=== PATIENT | female | born 1935 | race African-American/Black ===

== ENCOUNTER 2016-12-05 14:42 | Inpatient (IN) | payer OTHER ==
[~2016-12-05] VITALS: Ht 165.1 cm; Wt 75.7 kg
--- NOTE | 2016-12-05 07:30 | NUR ---
PT AWAKE AND ALERT, NO SIGNS OF ACUTE DISTRESS. BED IN LOW POSITION WITH CALL LIGHT WITHIN REACH. GAVE REPORT TO MONOTYPE KEYBOARD OPERATOR NURSE FOR CONTINUITY OF CARE. Addendum: 12/05/16 at 1940 by Jerilyn Kirkpatrick RN ENTERED TIME WRONG ON NOTE, MADE AT 1930. PT AWAKE AND ALERT, NO SIGNS OF ACUTE DISTRESS. BED IN LOW POSITION WITH CALL LIGHT WITHIN REACH. GAVE REPORT TO MONOTYPE KEYBOARD OPERATOR NURSE FOR CONTINUITY OF CARE.
[~2016-12-05 14:42] MED LIST: OMEG1SGL6 PO; [UNRECOGNIZED DRUG - CODE] PO
--- NOTE | 2016-12-05 14:45 | NUR ---
PATIENT AMBULATED WITH ASSISTANCE TO BED 3.
[2016-12-05 14:46] VITALS: BP 232/106
[2016-12-05] MEDS ORDERED: NACL 0.9% 1,000 ML IV SCH (14:52)
[2016-12-05] MEDS ORDERED: ASPIRIN 325 MG TAB PO ONE (14:55)
[2016-12-05] MEDS ORDERED: ONDANSETRON 4 MG/2 ML VIAL IVP ONE (14:55)
[2016-12-05] MEDS ORDERED: NITROGLYCERIN 0.4 MG TAB SL ONE (14:55)
[2016-12-05] MEDS ORDERED: FAMOTIDINE 20 MG/2 ML VIAL IVP ONE (14:55)
[2016-12-05] MEDS ORDERED: ORE25 PO (14:58)
--- NOTE | 2016-12-05 15:00 | NUR ---
81 yo female bib self for chest pain and headache, hx of htn. awake and alert on arrival, very unsteady gait. pain 6/10 pressure non-radiating. patient states pain started around 1030 this morning at rest. ERMD notified of patient status.
--- NOTE | 2016-12-05 15:01 | NUR ---
Patient being evaluated by physician at bedside.
--- NOTE | 2016-12-05 15:08 | NUR ---
ALEXSANDER NOTIFIED OF PATIENT'S HBP.
[2016-12-05 15:10] LABS: BASOPHILS # (AUTO) 0.1 K/uL (0.00-0.22); EOSINOPHILS # (AUTO) 0.1 K/uL (0-0.4); EOSINOPHILS % (AUTO) 2.2 % (0.0-4.0); HEMATOCRIT 37.8 % (36-48); HEMOGLOBIN 11.9 g/dL (12.0-16.0); LYMPHOCYTES # (AUTO) 2.8 K/uL (2.5-16.5); LYMPHOCYTES % (AUTO) 46.9 % (20.5-51.1); MEAN CORPUSCULAR HEMOGLOBIN 26 pg (27-31); MEAN CORPUSCULAR HGB CONC 32 g/dL (33-37); MEAN CORPUSCULAR VOLUME 83 fL (80-94); MONOCYTES # (AUTO) 0.4 K/uL (0.8-1.0); MONOCYTES % (AUTO) 6.2 % (1.7-9.3); NEUTROPHILS # (AUTO) 2.6 K/uL (1.8-7.7); PLATELET COUNT (AUTO) 360 K/uL (140-450); RED BLOOD CELL COUNT(AUTO) 4.53 MIL/uL (4.20-5.40); RED CELL DISTRIBUTION WIDTH 14.4 % (11.6-13.7)
[2016-12-05 15:27] LABS: ANION GAP 13.2 (8-16); CALCIUM 9.2 mg/dL (8.5-10.1); CARBON DIOXIDE 27.8 mmol/L (21-32); CHLORIDE 106 mmol/L (98-107); GLUCOSE 92 mg/dL (74-106); SODIUM SERUM 143 mmol/L (136-145); UREA NITROGEN, BLOOD 20 mg/dL (7-18)
[2016-12-05 15:32] LABS: PARTIAL THROMBOPLASTIN TIME 26.1 secs (22-35.6); PROTHROMBIN TIME 9.7 secs (10.8-13.4)
[2016-12-05 15:33] LABS: ALANINE AMINOTRANSFERASE 23 U/L (12-78); ALBUMIN 3.7 g/dL (3.4-5.0); ALKALINE PHOSPHATASE 76 U/L (46-116); ASPARTATE AMINOTRANSFERASE 18 U/L (15-37); TOTAL BILIRUBIN 0.5 mg/dL (0.0-1.0); TOTAL PROTEIN, SERUM 7.7 g/dL (6.4-8.2)
[2016-12-05] MEDS ORDERED: cloNIDine 0.1 MG TAB PO ONE (15:45)
[2016-12-05 15:53] LABS: AMYLASE 63 U/L (25-115); LIPASE 131 U/L (73-393)
[2016-12-05 16:24] LABS: BILIRUBIN,URINE NEGATIVE (NEGATIVE); BLOOD, URINE TRACE-I (NEGATIVE); LEUKOCYTE ESTERASE ,URINE NEGATIVE (NEGATIVE); NITRITE, URINE NEGATIVE (NEGATIVE); PH,URINE 5.5 (5.0-9.0); PROTEIN,URINE NEGATIVE (NEGATIVE); UGLUCOSE NEGATIVE (NEGATIVE); UROBILINOGEN,URINE 0.2 EU/dL (0.2 - 1)
[2016-12-05 16:27] LABS: APPEARANCE,URINE CLEAR (CLEAR); COLOR,URINE STRAW (YELLOW)
--- NOTE | 2016-12-05 16:34 | NUR ---
PT RESTING. FAMILY AT BEDSIDE. ERMD AWARE OF STATUS.
[2016-12-05 16:42] LABS: BACTERIA,URINE None Seen /HPF (None Seen); RBC,URINE 0-5 (RARE) /HPF (0-5); WBC,URINE NONE SEEN /HPF (0-5)
[2016-12-05 16:43] LABS: SQUAMOUS EPITHELIAL CELL,UR None Seen /LPF (0-3 (FEW))
[2016-12-05] MEDS ORDERED: ACETAMINOPHEN 325 MG TAB PO PRN (16:45)
[2016-12-05] MEDS ORDERED: HYDROcodone/APAP 7.5/325 MG 1 TAB PO PRN (16:45)
[2016-12-05] MEDS ORDERED: ONDANSETRON 4 MG/2 ML VIAL IVP PRN (16:45)
[2016-12-05 17:26] LABS: CHOL/HDL RATIO 4.3 (1-4.5); MAGNESIUM 2.2 mg/dL (1.8-2.4); PHOSPHORUS 3.7 mg/dL (2.5-4.9)
--- NOTE | 2016-12-05 17:30 | NUR ---
Patient will be admitted to care of DR. BELTRE. Admited to TELE. Will go to room 110B. Belongings list completed. Report to ANDI ANDRADE.
[2016-12-05 17:34] LABS: FREE T4 (FREE THYROXINE) 1.02 ng/dL (0.76-1.46); THYROID STIMULATING HORMONE 1.21 uIU/mL (0.34-3.76)
--- NOTE | 2016-12-05 17:45 | NUR ---
RECEIVED REPORT FROM FOOD SERVICE SALES REPRESENTATIVES, PT AWAKE AND ALERT, NO SIGNS OF ACUTE DISTRESS. BREATHING IS EVEN AND UNLABORED BILATERALLY, SKIN INTACT, BOWEL AND BLADDER CONTINENCE, AMBULATORY WITH ASSIST WITH MILD WEAKNESS, BOWEL SOUNDS ACTIVE IN ALL 4 QUADRANTS. IV PATENT AND ASYMPTOMATIC. BED IN LOW POSITION WITH BILATERAL HALF SIDE RAILS UP, CALL LIGHT WITHIN REACH. ORIENTED PATIENT TO UNIT AND HOSPITAL, PATIENT VERBALIZED UNDERSTANDING.
[2016-12-05] MEDS ORDERED: NITROGLYCERIN 0.4 MG TAB SL PRN (18:00)
[2016-12-05] MEDS ORDERED: MORPHINE SULFATE 2 MG/ML SYR IVP PRN (18:05)
[2016-12-05] MEDS: NACL 0.9% 1,000 ML IV SCH (19:27)
--- NOTE | 2016-12-05 19:40 | NUR ---
RECEIVED PT IN STABLE CONDITION FROM AM NURSE. AWAKE ,ALERT AND ORIENTED X4. ON TEL MONITOR . WITH NO C/O ANY PAIN NOR DISCOMFORT NOTED AT THIS TIME. IVF JUST STARTED BY AM NURSE ON THE RT AC#20 . CLEAR AND PATENT. PLAN OF CARE DISCUSSED AND VERBALIZED UNDERSTANDING. BED ON LOW POSITION. SIDE RAILS UP X2 AND CALL LIGHT PLACED WITHIN EASY REACH. FAMILY AT BEDSIDE. WILL CONTINUE TO MONITOR.
[2016-12-05 20:00] VITALS: BP_SYST 110; BP_SYST 153; BP_DIAS 53; BP_DIAS 94
[2016-12-05] MEDS: METOPROLOL 25 MG TAB PO SCH (21:00)
[2016-12-05] MEDS: ATORVASTATIN 20 MG TAB PO SCH (21:11)
[2016-12-05] MEDS: DOCUSATE SODIUM 100 MG GELCAP PO SCH (21:11)
--- NOTE | 2016-12-05 21:23 | NUR ---
LOPRESSOR NOT GIVEN FOR HR LOW . WILL CONTINUE TO MONITOR.
--- NOTE | 2016-12-05 22:50 | NUR ---
BLOOD WAS JUST DRAWN FOR TROPONIN. WILL FOLLOW UP RESULT.
[2016-12-05 23:30] VITALS: BP 136/77
--- NOTE | 2016-12-06 01:45 | NUR ---
2ND TROPONIN NEGATIVE RESULT.
--- NOTE | 2016-12-06 02:07 | NUR ---
TT HIS TIME. NO S/S OF ANY DISCOMFORT NOR PAIN NOTED. WILL CONTINUE TO MONITOR. Addendum: 12/06/16 at 0409 by Yanira Shearer RN SLEEPING AT THIS TIME.
[2016-12-06 04:00] VITALS: BP 133/54
--- NOTE | 2016-12-06 04:05 | NUR ---
SCD MACHINE APPLIED TO BLE . PT MADE AWARE OF THE BENEFITS OF THE MACHINE.
--- NOTE | 2016-12-06 05:30 | NUR ---
SLEEPING WELL AT THIS TIME. NO S/S OF ANY DISCOMFORT NOTED.
--- NOTE | 2016-12-06 07:08 | NUR ---
ENDORSED PT IN STABLE CONDITION TO AM NURSE.
--- NOTE | 2016-12-06 07:09 | NUR ---
PT AWAKE AND ALERT, NO SIGNS OF ACUTE DISTRESS. BREATHING EVEN AND UNLABORED BILATERALLY, PT ON ROOM AIR. BOWEL SOUNDS ACTIVE IN ALL 4 QUADRANTS, ABDOMEN SOFT AND NON-TENDER. SKIN INTACT. AMBULATORY WITH BRP. BOWEL AND BLADDER CONTINENT. PT DENIES PAIN AT THIS TIME. BED IN LOW POSITION WITH BILATERAL HALF SIDE RAILS UP, CALL LIGHT WITHIN REACH. REORIENTED TO UNIT AND HOSPITAL, PT VERBALIZED UNDERSTANDING.
[2016-12-06 07:13] LABS: BASOPHILS # (AUTO) 0.1 K/uL (0.00-0.22); BASOPHILS % (AUTO) 0.9 % (0.0-2.0); EOSINOPHILS # (AUTO) 0.1 K/uL (0-0.4); HEMATOCRIT 33.5 % (36-48); HEMOGLOBIN 10.4 g/dL (12.0-16.0); LYMPHOCYTES # (AUTO) 2.2 K/uL (2.5-16.5); LYMPHOCYTES % (AUTO) 38.6 % (20.5-51.1); MEAN CORPUSCULAR HEMOGLOBIN 26 pg (27-31); MEAN CORPUSCULAR HGB CONC 31 g/dL (33-37); MEAN CORPUSCULAR VOLUME 84 fL (80-94); MONOCYTES # (AUTO) 0.4 K/uL (0.8-1.0); MONOCYTES % (AUTO) 6.5 % (1.7-9.3); NEUTROPHILS # (AUTO) 2.9 K/uL (1.8-7.7); PLATELET COUNT (AUTO) 310 K/uL (140-450); RED BLOOD CELL COUNT(AUTO) 4.01 MIL/uL (4.20-5.40); RED CELL DISTRIBUTION WIDTH 14.3 % (11.6-13.7); WHITE BLOOD COUNT (AUTO) 5.7 K/uL (4.8-10.8)
[2016-12-06 07:36] LABS: ANION GAP 12.1 (8-16); CALCIUM 8.5 mg/dL (8.5-10.1); CARBON DIOXIDE 27.1 mmol/L (21-32); CHLORIDE 110 mmol/L (98-107); GLUCOSE 100 mg/dL (74-106); POTASSIUM 4.2 mmol/L (3.5-5.1); SODIUM SERUM 145 mmol/L (136-145); UREA NITROGEN, BLOOD 22 mg/dL (7-18)
[2016-12-06 07:41] LABS: MAGNESIUM 2.2 mg/dL (1.8-2.4); PHOSPHORUS 4.6 mg/dL (2.5-4.9)
[2016-12-06 07:56] VITALS: BP 144/51
[2016-12-06] MEDS ORDERED: HYDROCHLOROTHIAZIDE PO SCH (09:00)
[2016-12-06] MEDS ORDERED: [UNRECOGNIZED DRUG - OTHER] PO SCH (09:00)
[2016-12-06] MEDS: METOPROLOL 25 MG TAB PO SCH ×2 (09:00→20:20)
[2016-12-06] MEDS ORDERED: LOSARTAN PO SCH (09:00)
[2016-12-06] MEDS ORDERED: OMEGA ACID ETHYL ESTERS PO SCH (09:00)
[2016-12-06] MEDS ORDERED: LOSARTAN 50 MG TAB PO SCH (09:36)
[2016-12-06] MEDS ORDERED: HYDROCHLOROTHIAZIDE 25 MG TAB PO SCH (09:38)
[2016-12-06] MEDS: PANTOPRAZOLE 40 MG INJ VIAL IVP SCH (09:48)
[2016-12-06] MEDS: DOCUSATE SODIUM 100 MG GELCAP PO SCH ×2 (09:48→20:20)
[2016-12-06] MEDS: ASPIRIN 81 MG TAB.CHEW PO SCH (09:48)
--- NOTE | 2016-12-06 10:08 | NUR ---
PATIENT HAS BEEN SCREENED AND CATEGORIZED LOW NUTRITION RISK. PATIENT WILL BE SEEN WITHIN 7 DAYS OF ADMISSION. 12/12/[address]
--- NOTE | 2016-12-06 11:46 | NUR ---
PER [employer] FAX REVIEWS TO [facility] FAXED INITIAL REVIEW TO [facility] [phone] PHONE [phone]
[2016-12-06 12:00] VITALS: BP 160/69
[2016-12-06] MEDS: NACL 0.9% 1,000 ML IV SCH (13:52)
--- NOTE | 2016-12-06 15:50 | NUR ---
PATIENT BLOOD PRESSURE AT 160/73 AND WAS 160/69 AT LUNCH AFTER ANTIHYPERTENSIVE MEDICATIONS ADMINISTERED, INFORMED DR CALVIN, PER DR CALVIN RE-TAKE BLOOD PRESSURE AT 1700, NOTED AND WILL CARRY OUT.
[2016-12-06 16:00] VITALS: BP 160/73
--- NOTE | 2016-12-06 16:15 | NUR ---
RENAL ULTRASOUND FINISHED, PATIENT BACK TO REGULAR DIET.
[2016-12-06 17:00] VITALS: BP 152/63
--- NOTE | 2016-12-06 17:05 | NUR ---
RECHECKED BP AND PULSE, BP IS 152/63 AND PULSE 60, REPORTED TO DR CALVIN, NO NEW ORDERS GIVEN.
--- NOTE | 2016-12-06 17:50 | NUR ---
PT C/O RIGHT ARM PAIN, REMOVED IV. WILL INSERT NEW IV.
--- NOTE | 2016-12-06 19:25 | NUR ---
RECEIVED REPORT FROM DAY NURSE LUPE. INITIAL ASSESSMENT COMPLETED. PT AAOX4. PT'S DAUGHTER AT BEDSIDE. PT'S SKIN IS INTACT. PT HAS IV ON LEFT FOREARM G 22; ASYMPTOMATIC, PATENT AND INTACT INFUSING FLUIDS WELL. PT STABLE. ORIENTED PT TO ROOM AND SURROUNDINGS AND USE OF CALL. EXPLAINED PLAN OF CARE TO PT AND DAUGHTER AND THEY VERBALIZE UNDERSTANDING. SAFETY MEASURES IN PLACE, WILL CONTINUE TO MONITOR PT. CALL LIGHT WITHIN REACH.
[2016-12-06 20:00] VITALS: BP 159/65
[2016-12-06] MEDS: ATORVASTATIN 20 MG TAB PO SCH (20:20)
--- NOTE | 2016-12-06 20:22 | NUR ---
PT TOLERATED 2100 MEDS WELL. WILL CONTINUE TO MONITOR PT.
--- NOTE | 2016-12-06 22:30 | NUR ---
PT USING HER CELL PHONE, PT STABLE. CALL LIGHT WITHIN REACH.
[2016-12-07] VITALS: BP 152/62
--- NOTE | 2016-12-07 00:35 | NUR ---
PT SLEEPING AT THIS TIME, NO SIGNS OF DISTRESS NOTED. WILL CONTINUE TO MONITOR PT.
--- NOTE | 2016-12-07 03:21 | NUR ---
PT REQUESTED TO HAVE IV DISCONNECTED TO AMBULATE TO THE RESTROOM. PT BACK IN BED. CALL LIGHT WITHIN REACH.
[2016-12-07 04:00] VITALS: BP 148/69
--- NOTE | 2016-12-07 04:51 | NUR ---
PT SLEEPING, NO SIGNS OF DISTRESS OR DISCOMFORT NOTED. WILL CONTINUE TO MONITOR PT.
[2016-12-07 06:14] LABS: BASOPHILS # (AUTO) 0.1 K/uL (0.00-0.22); EOSINOPHILS # (AUTO) 0.1 K/uL (0-0.4); EOSINOPHILS % (AUTO) 1.9 % (0.0-4.0); HEMATOCRIT 32.2 % (36-48); HEMOGLOBIN 10.4 g/dL (12.0-16.0); LYMPHOCYTES # (AUTO) 2.8 K/uL (2.5-16.5); LYMPHOCYTES % (AUTO) 42.7 % (20.5-51.1); MEAN CORPUSCULAR HEMOGLOBIN 27 pg (27-31); MEAN CORPUSCULAR HGB CONC 32 g/dL (33-37); MEAN CORPUSCULAR VOLUME 84 fL (80-94); MONOCYTES # (AUTO) 0.4 K/uL (0.8-1.0); MONOCYTES % (AUTO) 6.5 % (1.7-9.3); NEUTROPHILS # (AUTO) 3.2 K/uL (1.8-7.7); NEUTROPHILS % (AUTO) 47.9 % (42.2-75.2); PLATELET COUNT (AUTO) 293 K/uL (140-450); RED BLOOD CELL COUNT(AUTO) 3.85 MIL/uL (4.20-5.40); RED CELL DISTRIBUTION WIDTH 14.3 % (11.6-13.7); WHITE BLOOD COUNT (AUTO) 6.6 K/uL (4.8-10.8)
[2016-12-07 06:46] LABS: ANION GAP 13.7 (8-16); CALCIUM 8.7 mg/dL (8.5-10.1); CARBON DIOXIDE 26.1 mmol/L (21-32); CHLORIDE 109 mmol/L (98-107); GLUCOSE 95 mg/dL (74-106); POTASSIUM 3.8 mmol/L (3.5-5.1); SODIUM SERUM 145 mmol/L (136-145); UREA NITROGEN, BLOOD 20 mg/dL (7-18)
[2016-12-07 06:55] LABS: PHOSPHORUS 4.4 mg/dL (2.5-4.9)
--- NOTE | 2016-12-07 07:10 | NUR ---
ENDORSED PLAN OF CARE TO DAY SHIFT NURSE. PT IN STABLE CONDITION.
--- NOTE | 2016-12-07 07:11 | NUR ---
RECEIVED REPORT OF PT AT BEDSIDE FROM RECTANGULAR TANK COOPER NURSE. INTRODUCED MYSELF AND UPDATED THE BOARD. PATIENT IS ALERT AWAKE AND ORIENTED. PT HAS IV ON L F/A 22 GAUGE RUNNING NS@50ML/HR. SCDS ON. BP 159/86, PULSE 62. WILL ADMINISTER MORNING BP MEDS. CALL LIGHT WITHIN REACH. WILL CONTINUE TO MONITOR.
[2016-12-07 08:00] VITALS: BP 159/86
--- NOTE | 2016-12-07 08:30 | NUR ---
PT RESTING COMFORTABLY IN BED. NO COMPLAINTS AT THIS TIME. WILL CONTINUE TO MONITOR.
[2016-12-07] MEDS: PANTOPRAZOLE 40 MG INJ VIAL IVP SCH (08:32)
[2016-12-07] MEDS: HYDROCHLOROTHIAZIDE 25 MG TAB PO SCH (08:32)
[2016-12-07] MEDS: ASPIRIN 81 MG TAB.CHEW PO SCH (08:33)
[2016-12-07] MEDS: METOPROLOL 25 MG TAB PO SCH ×2 (08:33→21:00)
[2016-12-07] MEDS: DOCUSATE SODIUM 100 MG GELCAP PO SCH ×2 (08:33→21:39)
[2016-12-07] MEDS: NACL 0.9% 1,000 ML IV SCH (08:38)
[2016-12-07] MEDS ORDERED: LOSARTAN 50 MG TAB PO SCH ×3 (09:00→21:00)
--- NOTE | 2016-12-07 10:31 | NUR ---
PT'S PULSE WENT DOWN TO 40 WHEN ASLEEP, WOKE PT UP, RECHECKED BP 150/66, PULSE 54.
--- NOTE | 2016-12-07 11:30 | NUR ---
NAZ BELTRE, MADE AWARE OF BP 188/68, ORDERS PENDING FOR IV BP MEDS. Addendum: 12/08/16 at 0109 by Babatunde Schneider RN WRONG TIME CORRECT DATE/TIME: 12/07/16 9428
[2016-12-07 12:00] VITALS: BP 197/73
--- NOTE | 2016-12-07 12:00 | NUR ---
REPORTED TO DR. SANTAMARIA THAT PT'S BP IS 197/73, PULSE 54 AND CAN GO DOWN TO [address] WILL PUT IN ORDERS FOR NEW MEDS FOR BP.
--- NOTE | 2016-12-07 12:04 | NUR ---
FAXED CONCURRENT REVIEW TO [facility] [phone] FAXED INITIAL REVIEW AND CONCURRENT REVIEW TO [facility] [phone] PHONE [phone] TRACKING NUMBER FOR [id number]
[2016-12-07] MEDS ORDERED: cloNIDine 0.1 MG TAB PO SCH ×3 (12:05→15:07)
[2016-12-07] MEDS ORDERED: LOSARTAN 50 MG TAB PO ONE (12:05)
--- NOTE | 2016-12-07 14:30 | NUR ---
PT IS WASHING UP AT BEDSIDE. TOLERATING WELL. CALL LIGHT WITHIN REACH. WILL CONTINUE TO MONITOR.
--- NOTE | 2016-12-07 15:00 | NUR ---
RECHECKED BP 182/88, PULSE 55. REPORTED TO DR. SANTAMARIA. DR WILL PUT IN NEW MED ORDERS.
[2016-12-07 16:00] VITALS: BP 155/73
--- NOTE | 2016-12-07 16:30 | NUR ---
RECHECKED BP 155/73, PULSE 50. PT STATED SHE BECAME A LITTLE DIZZY AFTER TAKING THE CLONIPINE. EDUCATED PT TO CALL FOR NURSE WHEN GOING TO BATHROOM TO HELP. PT VERBALIZED UNDERSTANDING.
--- NOTE | 2016-12-07 18:20 | NUR ---
BROUGHT DINNER TRAY TO PT. FAMILY AT BEDSIDE. CALL LIGHT WITHIN REACH. WILL CONTINUE TO MONITOR.
--- NOTE | 2016-12-07 19:27 | NUR ---
ENDORSED PT TO THE NIGHTSHIFT NURSE AT BEDSIDE FOR CONTINUITY OF CARE. PT IN STABLE CONDITION.
--- NOTE | 2016-12-07 19:30 | NUR ---
RECEIVED REPORT FROM AM NURSE. PT DAUGHTER AT BEDSIDE. PT AOX4, ABLE TO VERBALIZE NEEDS. PT DENIES CHEST PAIN, SOB, N/V OR S/S OF ACUTE DISTRESS. RENAL MEDICINE SPECIALIST IN PLACE. PT STATED FEELING "SLIGHT DIZZINESS AFTER CLONIDINE" IN THE AFTERNOON. PT EDUCATED TO CHANGE POSITIONS SLOWLY AND REPORT ANYTHING ABNORMAL. WILL CONTINUE TO MONITOR IV ACCESS ASYMPTOMATIC, PATENT AND INTACT. IVF INFUSING WELL. DISCUSSED AND REVIEWED PLAN OF CARE WITH PT. PT VERBALIZES UNDERSTANDING. SAFETY MEASURES ENSURED. CALL LIGHT WITHIN REACH. WILL CONTINUE TO MONITOR.
[2016-12-07 20:00] VITALS: BP 151/57
[2016-12-07] MEDS: cloNIDine 0.1 MG TAB PO SCH (21:38)
[2016-12-07] MEDS: ATORVASTATIN 20 MG TAB PO SCH (21:38)
--- NOTE | 2016-12-07 21:43 | NUR ---
HELD METOPROLOL DUE TO HR 55. ADMINISTERED REMAINING MEDICATIONS WITH EDUCATION. PT VERBALIZES UNDERSTANDING. PT TOLERATED MEDS WELL. ASSISTED PT TO THE RESTROOM. PT OBSERVED TO WALK INDEPENDENTLY WITH STEADY GAIT. SAFETY MEASURES ENSURED. CALL LIGHT WITHIN REACH.
[2016-12-07] MEDS ORDERED: cefTRIAXone 1,000 MG VIAL ONE (22:13)
--- NOTE | 2016-12-07 23:30 | NUR ---
PAGED DR BELTRE, MADE MD AWARE OF BP 188/68, ORDERS PENDING FOR IV BP MEDS. CONDITION STABLE. PT ASYMPTOMATIC AT THIS TIME.
[2016-12-08] VITALS: BP 188/68
--- NOTE | 2016-12-08 00:30 | NUR ---
BP RECHECKED, 148/75 ON LEFT ARM AND 142/66 ON RIGHT ARM; HR 48. PARAMETERS OF SBP>160 NOT MET FOR PRN IV APRESOLINE. PT ASYMPTOMATIC, CONDITION STABLE. WILL CONTINUE TO MONITOR.
[2016-12-08 04:00] VITALS: BP 156/72
--- NOTE | 2016-12-08 04:00 | NUR ---
PT SLEEPING. CONDITION STABLE. ALL NEEDS MET. SAFETY MEASURES ENSURED. CALL LIGHT WITHIN REACH.
[2016-12-08] MEDS: cloNIDine 0.1 MG TAB PO SCH ×3 (04:01→21:07)
[2016-12-08] MEDS: NACL 0.9% 1,000 ML IV SCH (04:42)
[2016-12-08 07:25] LABS: BASOPHILS # (AUTO) 0.1 K/uL (0.00-0.22); BASOPHILS % (AUTO) 1.2 % (0.0-2.0); EOSINOPHILS # (AUTO) 0.2 K/uL (0-0.4); EOSINOPHILS % (AUTO) 2.7 % (0.0-4.0); HEMOGLOBIN 10.9 g/dL (12.0-16.0); LYMPHOCYTES # (AUTO) 2.5 K/uL (2.5-16.5); LYMPHOCYTES % (AUTO) 41.6 % (20.5-51.1); MEAN CORPUSCULAR HEMOGLOBIN 27 pg (27-31); MEAN CORPUSCULAR HGB CONC 32 g/dL (33-37); MEAN CORPUSCULAR VOLUME 83 fL (80-94); MONOCYTES # (AUTO) 0.4 K/uL (0.8-1.0); MONOCYTES % (AUTO) 6.7 % (1.7-9.3); NEUTROPHILS # (AUTO) 2.7 K/uL (1.8-7.7); NEUTROPHILS % (AUTO) 47.8 % (42.2-75.2); PLATELET COUNT (AUTO) 310 K/uL (140-450); RED BLOOD CELL COUNT(AUTO) 4.09 MIL/uL (4.20-5.40); RED CELL DISTRIBUTION WIDTH 14.1 % (11.6-13.7); WHITE BLOOD COUNT (AUTO) 5.9 K/uL (4.8-10.8)
[2016-12-08 07:30] LABS: ANION GAP 10.7 (8-16); CALCIUM 8.8 mg/dL (8.5-10.1); CARBON DIOXIDE 29.3 mmol/L (21-32); CHLORIDE 108 mmol/L (98-107); GLUCOSE 108 mg/dL (74-106); SODIUM SERUM 144 mmol/L (136-145); UREA NITROGEN, BLOOD 18 mg/dL (7-18)
--- NOTE | 2016-12-08 07:40 | NUR ---
CONDITION STABLE. ENDORSED PLAN OF CARE TO AM NURSE.
--- NOTE | 2016-12-08 07:40 | NUR ---
RECEIVED REPORT FROM NIGHT NURSE, PT IS AOOX4, ON ROOM AIR, IV TO LEFT FA 22G INFUSING WELL. PT STATES NO CHEST PAIN AT THIS TIME. INITIAL ASSESSMENT COMPLETED, REVIEWED PLAN OF CARE WITH PT, PT VERBALIZED UNDERSTANDING. ALL SAFETY PRECAUTIONS MET. CALL LIGHT WITHIN REACH. WILL CONTINUE TO MONITOR.
[2016-12-08 07:47] LABS: MAGNESIUM 2.1 mg/dL (1.8-2.4); PHOSPHORUS 3.9 mg/dL (2.5-4.9)
[2016-12-08 08:00] VITALS: BP 139/63
[2016-12-08] MEDS: METOPROLOL 25 MG TAB PO SCH ×2 (09:00→21:00)
[2016-12-08] MEDS: PANTOPRAZOLE 40 MG INJ VIAL IVP SCH (09:04)
[2016-12-08] MEDS: ASPIRIN 81 MG TAB.CHEW PO SCH (09:05)
[2016-12-08] MEDS: DOCUSATE SODIUM 100 MG GELCAP PO SCH ×2 (09:05→21:06)
[2016-12-08] MEDS: HYDROCHLOROTHIAZIDE 25 MG TAB PO SCH (09:07)
[2016-12-08] MEDS: LOSARTAN 50 MG TAB PO SCH (09:07)
--- NOTE | 2016-12-08 09:09 | NUR ---
DUE MEDICATIONS GIVEN. PT TOLERATED WELL. METOPROLOL NOT GIVEN HR OF 43. ALL NEEDS MET. CALL LIGHT WITHIN REACH. WILL CONTINUE TO MONITOR.
--- NOTE | 2016-12-08 11:02 | NUR ---
ENDORSED PLAN OF CARE TO CRISTINA ESCAMILLA. PT IN STABLE CONDITION
--- NOTE | 2016-12-08 11:02 | NUR ---
RECEIVED REPORT FROM ANDI PERRY. PT SLEEPING IN BED. NO S/S OF ACUTE DISTRESS. IV SITE PATENT AND INTACT. AAOX4. PT DENIES PAIN. CALL LIGHT WITHIN REACH. SAFETY MEASURES ENSURED. WILL CONTINUE TO MONITOR.
--- NOTE | 2016-12-08 11:12 | NUR ---
FAXED CONCURRENT REVIEW TO [facility] [phone] # [phone] AND TO [employer] [phone] PHONE [phone] TRACKING NUMBER [id number]
[2016-12-08 12:00] VITALS: BP 190/69
--- NOTE | 2016-12-08 12:20 | NUR ---
PT RESTING IN BED. NO S/S OF ACUTE DISTRESS. PT DENIES PAIN. CALL LIGHT WITHIN REACH. SAFETY MEASURES ENSURED. WILL CONTINUE TO MONITOR.
[2016-12-08] MEDS: hydrALAZINE 20 MG/ML VIAL IVP PRN (12:27)
--- NOTE | 2016-12-08 14:19 | NUR ---
PT RESTING IN BED. NO S/S OF ACUTE DISTRESS. PT DENIES PAIN. CALL LIGHT WITHIN REACH. SAFETY MEASURES ENSURED. WILL CONTINUE TO MONITOR.
[2016-12-08 16:00] VITALS: BP 145/57
--- NOTE | 2016-12-08 17:06 | NUR ---
PT RESTING IN BED. NO S/S OF ACUTE DISTRESS. PT DENIES PAIN. CALL LIGHT WITHIN REACH. SAFETY MEASURES ENSURED. WILL CONTINUE TO MONITOR.
--- NOTE | 2016-12-08 19:16 | NUR ---
ENDORSED PLAN OF CARE TO NIGHT RN. PT REMAINS IN STABLE CONDITION
--- NOTE | 2016-12-08 19:35 | NUR ---
RECEIVED REPORT FROM AM NURSE. PT SITTING AT BEDSIDE. AOX4, ABLE TO VERBALIZE NEEDS. PT DENIES CHEST PAIN, SOB, N/V OR S/S OF ACUTE DISTRESS. FIRE CREW WORKER IN PLACE. PT EDUCATED TO CHANGE POSITIONS SLOWLY AND REPORT ANYTHING ABNORMAL. WILL CONTINUE TO MONITOR IV ACCESS INFILTRATED. IV ACCESS REMOVED, CANNULA INTACT. PT TOLERATED WELL. WILL INSERT NEW IV. DISCUSSED AND REVIEWED PLAN OF CARE WITH PT. PT VERBALIZES UNDERSTANDING. SAFETY MEASURES ENSURED. CALL LIGHT WITHIN REACH. WILL CONTINUE TO MONITOR.
[2016-12-08 20:00] VITALS: BP 122/54
[2016-12-08] MEDS: ATORVASTATIN 20 MG TAB PO SCH (21:07)
--- NOTE | 2016-12-08 21:20 | NUR ---
HELD METOPROLOL DUE TO DECREASED PULSE. REMAINING MEDICATIONS ADMINISTERED WITH EDUCATION. PT VERBALIZED UNDERSTANDING AND TOLERATED MED WELL. NEW IV ACCESS STARTED ON 22G ON LEFT FOREARM. PT TOLERATED WELL. IVF INFUSING WELL.
[2016-12-09] VITALS: BP 151/64
--- NOTE | 2016-12-09 | NUR ---
PT RESTING COMFORTABLY. ALL NEEDS MET. SAFETY MEASURES ENSURED. CALL LIGHT WITHIN REACH. WILL CONTINUE TO MONITOR.
[2016-12-09] MEDS: NACL 0.9% 1,000 ML IV SCH (00:42)
[2016-12-09 04:00] VITALS: BP 150/66
[2016-12-09] MEDS: cloNIDine 0.1 MG TAB PO SCH (04:43)
--- NOTE | 2016-12-09 04:45 | NUR ---
ADMINISTERED DUE MEDICATION WITH EDUCATION. PT VERBALIZED UNDERSTANDING AND TOLERATED MED WELL. ALL NEEDS MET. CONDITION STABLE. SAFETY MEASURES ENSURED. CALL LIGHT WITHIN REACH.
[2016-12-09] MEDS: hydrALAZINE 20 MG/ML VIAL IVP PRN (06:29)
--- NOTE | 2016-12-09 07:26 | NUR ---
RECEIVED REPORT FROM NIGHT NURSE, PT IS AOOX4, ON ROOM AIR, IV TO LEFT FA 22G INFUSING WELL. PT STATES PAIN AT THIS TIME. NO S/S OF DISTRESS OR DISCOMFORT NOTED. INITIAL ASSESSMENT COMPLETED, REVIEWED PLAN OF CARE WITH PT, PT VERBALIZED UNDERSTANDING. ALL SAFETY PRECAUTIONS MET. CALL LIGHT WITHIN REACH. WILL CONTINUE TO MONITOR.
--- NOTE | 2016-12-09 07:26 | NUR ---
ENDORSED PLAN OF CARE TO AM NURSE. CONDITION STABLE.
[2016-12-09 08:00] VITALS: BP 115/64
[2016-12-09] MEDS: ASPIRIN 81 MG TAB.CHEW PO SCH (08:29)
[2016-12-09] MEDS: DOCUSATE SODIUM 100 MG GELCAP PO SCH (08:29)
[2016-12-09] MEDS: PANTOPRAZOLE 40 MG INJ VIAL IVP SCH (08:30)
--- NOTE | 2016-12-09 08:31 | NUR ---
BP MEDICATIONS NOT GIVEN, BP WNL. PT CURRENTLY EATING BREAKFAST. ALL NEEDS MET. CALL LIGHT WITHIN REACH. WILL CONTINUE TO MONITOR.
[2016-12-09] MEDS: HYDROCHLOROTHIAZIDE 25 MG TAB PO SCH (09:00)
[2016-12-09] MEDS: LOSARTAN 50 MG TAB PO SCH (09:00)
[2016-12-09] MEDS ORDERED: METOPROLOL 25 MG TAB PO SCH (09:00)
[2016-12-09] MEDS: METOPROLOL 25 MG TAB PO SCH (09:00)
--- NOTE | 2016-12-09 10:10 | NUR ---
PT CURRENTLY RESTING IN BED, ALL NEEDS MET. CALL LIGHT WITHIN REACH. WILL CONTINUE TO MONITOR.
[2016-12-09] MEDS ORDERED: MECLIZINE 25 MG TAB PO PRN (10:25)
[2016-12-09] MEDS ORDERED: LOSA50TA1 PO ×2 (10:55→11:04)
[2016-12-09] MEDS ORDERED: ASPI81CT27 PO ×2 (10:55→11:04)
[2016-12-09] MEDS ORDERED: MECL-272 PO (10:55)
[2016-12-09] MEDS ORDERED: ORE25 PO ×2 (10:55→11:04)
[2016-12-09] MEDS ORDERED: CLON0.1T42 PO ×2 (10:55→11:04)
[2016-12-09] MEDS ORDERED: ATOR20TA40 PO ×2 (10:55→11:04)
[2016-12-09] MEDS ORDERED: MECLIZINE 25 MG TAB PO SCH (11:15)
[2016-12-09] MEDS ORDERED: cloNIDine 0.1 MG TAB PO SCH (11:30)
--- NOTE | 2016-12-09 11:49 | NUR ---
DUE MEDICATIONS GIVEN, CLONIDINE WAS NOT GIVEN BP 137/55 HR 51. WILL CONTINUE TO MONITOR. DR VILLATORO CURRENTLY IN ROOM WITH PT.
--- NOTE | 2016-12-09 12:15 | NUR ---
FAXED CONCURRENT REVIEW TO [facility] [phone] PHONE [phone] FAXED CONCURRENT REVIEW TO /[facility] [phone] PHONE [employer] [phone] TRACKING #[id number]
--- NOTE | 2016-12-09 13:45 | NUR ---
DISCUSSED DISCHARGE PLAN WITH PT, PT VERBALIZED UNDERSTANDING.
--- NOTE | 2016-12-09 14:30 | NUR ---
PT SIGNED ALL DISCHARGE PAPERWORK, DISCHARGE INSTRUCTIONS GIVEN, FOLLOW UP APPOINTMENT INFORMATION GIVEN, EDUCATED ON NEW MEDICATIONS. IV REMOVED TIP INTACT, ALL PERSONAL BELONGING WITH PT.
--- NOTE | 2016-12-09 14:44 | NUR ---
PT WAS WHEELED OUT TO FRONT LOBBY, PT IN STABLE CONDITION.
== END 2016-12-09 14:44 | disposition home or self-care (01) | DRG 205 ==
LOC: MED 14:42 → MTU 16:54
PROVIDERS: ADMIT Family Medicine; ATTEND Family Medicine
DX: M94.0 Chondrocostal junction syndrome [Tietze] (principal); I50.43 Acute on chronic combined systolic (congestive) and diastolic (congestive) heart failure; N17.0 Acute kidney failure with tubular necrosis; I16.0 Hypertensive urgency; K21.9 Gastro-esophageal reflux disease without esophagitis; D64.9 Anemia, unspecified; I11.0 Hypertensive heart disease with heart failure; E78.00 Pure hypercholesterolemia, unspecified; I25.10 Atherosclerotic heart disease of native coronary artery without angina pectoris; M19.90 Unspecified osteoarthritis, unspecified site; E11.9 Type 2 diabetes mellitus without complications; Z60.2 Problems related to living alone; E78.2 Mixed hyperlipidemia; R00.1 Bradycardia, unspecified; Z96.1 Presence of intraocular lens; Z72.89 Other problems related to lifestyle; Z90.710 Acquired absence of both cervix and uterus; Z88.6 Allergy status to analgesic agent; Z88.2 Allergy status to sulfonamides; Z88.0 Allergy status to penicillin; Z79.899 Other long term (current) drug therapy; Z98.42 Cataract extraction status, left eye; Z98.41 Cataract extraction status, right eye; Z83.3 Family history of diabetes mellitus; Z80.42 Family history of malignant neoplasm of prostate; Z28.21 Immunization not carried out because of patient refusal
CPT/HCPCS: 36415; 71010; 80048; 80053; 81001; 82150; 82553; 83036; 83690; 83735; 83880; 84100; 84439; 84443; 84484; 85025; 85379; 85610; 85730; 87081; 93005; 93976; 96361; 96374; 96375; 99285; C9113; J0360; J0696; J2405; J3490; J7030; J8597; Q0092